=== PATIENT | female | born 1985 ===

== ENCOUNTER 2017-02-12 09:21 | Emergency (ER) | payer OTHER ==
[2017-02-12 09:25] VITALS: BP 112/72; PULSE 72; RESP 20; TEMP 98.3; O2SAT 100
[2017-02-12] MEDS ORDERED: Sodium Chloride 0.9% 1,000 ML IV ONE (09:55)
--- NOTE | 2017-02-12 09:55 | C.PDOC ---
History Of Present Illness Patient is a 31 year old female who presents to the ER with a complaint of epigastric pain and vomiting. Patient had gone to see a GI doctor who scheduled her for an US but the appointment is 2 weeks from now; she was told if pain increased to go to ER. Denies fever or chills. Time Seen by Provider: 02/12/17 09:41 Chief Complaint (Nursing): Abdominal Pain History Per: Patient History/Exam Limitations: no limitations Onset/Duration Of Symptoms: Days Current Symptoms Are (Timing): Still Present Location Of Pain/Discomfort: Epigastric Radiation Of Pain To:: None Quality Of Discomfort: Unable To Describe Associated Symptoms: Vomiting. denies: Fever, Chills Exacerbating Factors: None Alleviating Factors: None Recent travel outside of the [place]: No Abnormal Vaginal Bleeding: No Past Medical History Reviewed: Historical Data, Nursing Documentation, Vital Signs Vital Signs: Last Vital Signs Temp 98.3 F 02/12/17 09:23 Pulse 72 02/12/17 09:23 Resp 20 02/12/17 09:23 BP 112/72 02/12/17 09:23 Pulse Ox 100 02/23/17 09:20 - Medical History PMH: No Chronic Diseases Surgical History: No Surg Hx Family History: States: Unknown Family Hx - Social History Hx Alcohol Use: No Hx Substance Use: No - Immunization History Hx Tetanus Toxoid Vaccination: No Hx Influenza Vaccination: No Review Of Systems Constitutional: Negative for: Fever, Chills Gastrointestinal: Positive for: Vomiting, Abdominal Pain Physical Exam - Physical Exam Appears: Non-toxic, No Acute Distress Skin: Normal Color, Warm, Dry Head: Atraumatic, Normacephalic Oral Mucosa: Moist Chest: Symmetrical, No Tenderness Cardiovascular: Rhythm Regular, No Murmur Respiratory: Normal Breath Sounds, No Rales, No Rhonchi, No Wheezing Gastrointestinal/Abdominal: Soft, Tenderness (Epigastric) Neurological/Psych: Oriented x3, Normal Speech, Normal Cognition ED Course And Treatment - Laboratory Results Result Diagrams: 02/12/17 10:03 02/12/17 10:03 Lab Interpretation: Normal Urine POC: Negative O2 Sat by Pulse Oximetry: 100 (Room air) Pulse Ox Interpretation: Normal Progress Note: Blood work, urinalysis, and abdominal US ordered. Toradol, zofran , and IV fluids administered. Reassessment Condition: Improved Disposition Counseled Patient/Family Regarding: Diagnosis - Disposition Disposition: HOME/ ROUTINE Disposition Time: 10:00 Condition: STABLE Instructions: Abdominal Pain (ED) - POA Present On Arrival: None - Clinical Impression Clinical Impression: Nausea, Vomiting - Scribe Statement The provider has reviewed the documentation as recorded by the Scribjennifer Delgado All medical record entries made by the Anaisibjennifer were at my direction and personally dictated by me. I have reviewed the chart and agree that the record accurately reflects my personal performance of the history, physical exam, medical decision making, and the department course for this patient. I have also personally directed, reviewed, and agree with the discharge instructions and disposition.
[2017-02-12] MEDS ORDERED: Sodium Chloride 0.9% 1,000 ML ONE ×2 (10:07→23:19)
[2017-02-12 10:08] LABS: BASO % 0.4 % (0.0-2.0); EOS # 0.1 K/uL (0.0-0.7); EOS % 1.1 % (0.0-4.0); HEMOGLOBIN 10.6 g/dL (11.0-16.0); LYMPH # 1.7 K/uL (1.0-4.3); LYMPH % 23.6 % (20.0-40.0); MEAN CELL VOLUME 74.4 fL (81.0-99.0); MEAN CORPUSCULAR HEMOGLOBIN 23.8 pg (27.0-31.0); MEAN CORPUSCULAR HGB CONC 32.1 g/dL (33.0-37.0); MEAN PLATELET VOLUME 7.3 fL (7.2-11.7); MONO # 0.5 K/uL (0.0-0.8); MONO % 7.5 % (0.0-10.0); NEUT # 4.8 K/uL (1.8-7.0); NEUT % 67.4 % (50.0-75.0); RBC 4.44 Mil/uL (3.80-5.20)
[2017-02-12 10:14] LABS: HCG,QUALITATIVE URINE NEGATIVE (NEGATIVE)
[2017-02-12 10:21] LABS: SQUAMOUS EPITHIAL 16 /hpf (0-5); URINE BILIRUBIN NEGATIVE (NEGATIVE); URINE BLOOD NEGATIVE (NEGATIVE); URINE CLARITY Hazy (Clear); URINE COLOR Yellow (YELLOW); URINE GLUCOSE (UA) NORMAL (Normal); URINE LEUKOCYTE ESTERASE 2+ Leu/uL (Negative); URINE NITRATE NEGATIVE (NEGATIVE); URINE PROTEIN NEGATIVE (NEGATIVE); URINE UROBILINOGEN NORMAL mg/dL (0.2-1.0)
[2017-02-12 10:23] LABS: GFR AFRICAN-AMERICAN > 60; GFR NON-AFRICAN AMERICAN > 60
[2017-02-12 10:24] LABS: ALB/GLOB RATIO 1.2 (1.0-2.1); ALT/SGPT 30 U/L (9-52); AST/SGOT 19 U/L (14-36); BLOOD UREA NITROGEN 14 mg/dL (7-17); CALCIUM 8.9 mg/dl (8.6-10.4); LIPASE 83 U/L (23-300)
[2017-02-12 10:50] LABS: AMYLASE 91 U/L (30-110)
--- NOTE | 2017-02-12 12:24 | US ---
HISTORY: Pain COMPARISON: None. TECHNIQUE: Sonographic evaluation of the right upper quadrant of the abdomen. FINDINGS: LIVER: Measures 15.9 cm in length. Normal echogenicity of the liver parenchyma. No mass. No intrahepatic bile duct dilatation. GALLBLADDER: Unremarkable. No gallstones. COMMON BILE DUCT: Measures 4.0 mm. No stones. No dilatation. PANCREAS: Unremarkable as visualized. No mass. No ductal dilatation. RIGHT KIDNEY: Measures 9.8 cm in length. Normal echogenicity. No calculus, mass, or hydronephrosis. AORTA: No aneurysmal dilatation. IVC: Unremarkable. OTHER FINDINGS: There is small amount of free fluid in the abdomen. IMPRESSION: No cholelithiasis or biliary dilatation. Mild abdominal ascites.
== END 2017-02-12 13:25 | disposition home or self-care (01) ==
LOC: C.ER 09:21
DX: K29.70 Gastritis, unspecified, without bleeding (principal)
CPT/HCPCS: 76705; 80053; 81001; 82150; 83690; 84703; 85025; 96361; 96374; 96375; 99285; J1885; J2405; J7040

== ENCOUNTER 2017-02-19 18:22 | Emergency (ER) | payer SELFPAY ==
[2017-02-19 18:30] VITALS: BP 110/75; PULSE 74; RESP 18; TEMP 98.1; O2SAT 99
[2017-02-19] MEDS ORDERED: Sodium Chloride 0.9% 1,000 ML IV ONE (18:37)
--- NOTE | 2017-02-19 18:40 | C.PDOC ---
History Of Present Illness 31 yr old female presents to the ER with complaints of persistent epigastric pain and vomiting. Patient states she was seen in ER few days ago for same complaint but the pain persists. Denies fever, chest pain, SOB, nausea, diarrhea , constipation, dysuria, incontinence, weakness or numbness. Time Seen by Provider: 02/19/17 18:31 Chief Complaint (Nursing): Abdominal Pain History Per: Patient History/Exam Limitations: no limitations Onset/Duration Of Symptoms: Persistent (Few days) Current Symptoms Are (Timing): Still Present Location Of Pain/Discomfort: Epigastric Past Medical History Reviewed: Historical Data, Nursing Documentation, Vital Signs Vital Signs: Last Vital Signs Temp 98.1 F 02/19/17 18:28 Pulse 74 02/19/17 18:28 Resp 18 02/19/17 18:28 BP 110/75 02/19/17 18:28 Pulse Ox 99 02/19/17 18:42 Family History: States: No Known Family Hx - Social History Hx Alcohol Use: No Hx Substance Use: No - Immunization History Hx Tetanus Toxoid Vaccination: No Hx Influenza Vaccination: No Review Of Systems Except As Marked, All Systems Reviewed And Found Negative. Constitutional: Negative for: Fever Cardiovascular: Negative for: Chest Pain Respiratory: Negative for: Shortness of Breath Gastrointestinal: Positive for: Vomiting, Abdominal Pain (Epigastric ). Negative for: Nausea, Diarrhea, Constipation Genitourinary: Negative for: Dysuria, Incontinence Neurological: Negative for: Weakness, Numbness Physical Exam - Physical Exam Appears: Non-toxic, No Acute Distress Skin: Warm, Dry, No Rash Head: Atraumatic, Normacephalic Oral Mucosa: Moist Chest: Symmetrical, No Tenderness Cardiovascular: Rhythm Regular, No Murmur Respiratory: Normal Breath Sounds, No Rales, No Rhonchi, No Stridor, No Wheezing Gastrointestinal/Abdominal: Soft, Tenderness (Epigastric tenderness. ), No Guarding, No Rebound Extremity: Normal ROM, No Swelling Neurological/Psych: Oriented x3, Normal Speech, Normal Motor ED Course And Treatment O2 Sat by Pulse Oximetry: 99 Medical Decision Making Medical Decision Making: PLAN: * CBC * CMP * HCG * Urinalysis * Protonix IVP * Zofran IVP * Sodium Chloride IV * * 700: after inital physician ananda michaels seen eloping from er. Disposition - Disposition Disposition: ELOPEMENT - ER ONLY Disposition Time: 07:00 Condition: UNKNOWN - Clinical Impression Clinical Impression: Abdominal pain - Scribe Statement The provider has reviewed the documentation as recorded by the Anaisibe Thu Dumont Provider Attestation: All medical record entries made by the Anaisibjennifer were at my direction and personally dictated by me. I have reviewed the chart and agree that the record accurately reflects my personal performance of the history, physical exam, medical decision making, and the department course for this patient. I have also personally directed, reviewed, and agree with the discharge instructions and disposition.
== END 2017-02-19 18:47 | disposition left against medical advice (07) ==
LOC: C.ER 18:22
DX: R10.13 Epigastric pain (principal)